=== PATIENT | female | born 1940 | race American Indian/Alaskan Native ===

== ENCOUNTER 2018-08-09 11:16 | Emergency (ER) | payer MEDICARE ==
[2018-08-09] MEDS ORDERED: Sodium Chloride 0.9% 1,000 ML IV STA (12:00)
--- NOTE | 2018-08-09 12:13 | ED PDOC ---
Arrival/HPI - General Historian: Patient, Family - History of Present Illness Narrative History of Present Illness (Text): 08/09/18 12:25 Pt is a 78yo female with a PMH of pancreatic cancer (diagnosed 10 years ago, s/p chemo radiation), cardiac stent (10 years ago), HTN, UTI, constipation who presents to the [facility] complaining of LLQ abdominal pain. Pt was recently admitted [place] [facility] [place] similar symptoms last month, she was treated for UTI and constipation. Denies blood in the stool, urinary symptoms, fever. Time/Duration: < week Symptom Course: Worsening Quality: Pressure Severity Level: 9 <Jose Martínez - Last Filed: 08/09/18 17:10> <Phi Turner DO - Last Filed: 08/09/18 19:56> - General Chief Complaint: Abdominal Pain Time Seen by Provider: 08/09/18 12:10 Past Medical History - Cardiac Hx Hypertension: Yes - Gastrointestinal Hx Gastrointestinal Disorders: Yes Other/Comment: Pancreatic CA - Psychiatric Hx Substance Use: No - Surgical History Hx Cardiac Catheterization: Yes (x 1 stent) - Anesthesia Hx Anesthesia: Yes Hx Anesthesia Reactions: No Hx Malignant Hyperthermia: No <Jose Martínez - Last Filed: 08/09/18 17:10> Family/Social History Family/Social History: Unknown Family HX Smoking Status: Never Smoked Hx Alcohol Use: No Hx Substance Use: No <Jose Martínez - Last Filed: 08/09/18 17:10> Allergies/Home Meds <Jose Martínez - Last Filed: 08/09/18 17:10> <Phi Turner DO - Last Filed: 08/09/18 19:56> Allergies/Adverse Reactions: Allergies No Known Allergies Allergy (Verified 08/09/18 11:43) Physical Exam Vital Signs Temp Pulse Resp BP Pulse Ox 08/09/18 11:16 98 F 68 20 160/70 H 100 Temperature: Afebrile Blood Pressure: Normal Pulse: Regular Respiratory Rate: Normal Mental Status: Positive for: Alert and Oriented X 3 - Systems Exam Head: Present: Atraumatic, Normocephalic Pupils: Present: PERRL Extroacular Muscles: Present: EOMI Mouth: Present: Moist Mucous Membranes Neck: Present: Normal Range of Motion Respiratory/Chest: Present: Clear to Auscultation, Good Air Exchange. No: Respiratory Distress, Accessory Muscle Use Cardiovascular: Present: Regular Rate and Rhythm, Normal S1, S2 Abdomen: Present: Tenderness (LLQ), Normal Bowel Sounds. No: Distention Upper Extremity: Present: Normal Inspection Lower Extremity: Present: Normal Inspection Neurological: Present: GCS=15, CN II-XII Intact, Speech Normal Skin: Present: Warm, Dry, Rashes Psychiatric: Present: Alert, Oriented x 3 <Jose Martínez - Last Filed: 08/09/18 17:10> Vital Signs Temp Pulse Resp BP Pulse Ox 08/09/18 16:13 64 18 175/87 H 100 08/09/18 15:59 64 18 204/79 H 99 08/09/18 15:03 79 227/89 H 08/09/18 14:30 71 18 227/88 H 99 08/09/18 13:48 98.2 F 66 18 221/86 H 100 08/09/18 11:16 98 F 68 20 160/70 H 100 <Phi Turner DO - Last Filed: 08/09/18 19:56> Medical Decision Making ED Course and Treatment: 08/09/18 12:38 amylase CMP Lipase Mg CBC Urine Cx toradol for pain control UA, urine culture CTAP with PO contrast pt to be sent home with pain medications pt advised to restart home antihypertensives tomorrow morning Pt seen, examined, assessment and plan discussed with Dr Johnny Martínez PGY1 08/09/18 16:28 - RAD Interpretation Radiology Orders: 08/09/18 12:00 ABD PELVIS PO & IV CONTRAST [CT] Stat - Medication Orders Current Medication Orders: Sodium Chloride (Sodium Chloride 0.9%) 1,000 mls @ 100 mls/hr IV .Q10H STA Stop: 08/09/18 21:59 Discontinued Medications Ketorolac Tromethamine (Toradol) 30 mg IVP STAT STA Stop: 08/09/18 12:01 Ondansetron HCl (Zofran Inj) 4 mg IVP STAT STA Stop: 08/09/18 12:01 <Jose Martínez - Last Filed: 08/09/18 17:10> ED Course and Treatment: Case discussed with patient's PMD, Dr. Ramirez. Patient to follow up with PMD in 2-3 days for blood pressure monitoring and management. - Lab Interpretations Lab Results: Total Bilirubin 0.9 mg/dL (0.2-1.3) 08/09/18 13:05 AST 34 U/L (14-36) 08/09/18 13:05 ALT 8 U/L (7-56) 08/09/18 13:05 Alkaline Phosphatase 43 U/L (38-126) 08/09/18 13:05 Total Protein 6.9 g/dL (5.8-8.3) 08/09/18 13:05 Albumin 3.7 g/dL (3.0-4.8) 08/09/18 13:05 Globulin 3.2 gm/dL 08/09/18 13:05 Albumin/Globulin Ratio 1.1 (1.1-1.8) 08/09/18 13:05 Amylase 50 U/L (35-125) 08/09/18 13:05 Lipase 50 U/L (23-300) 08/09/18 13:05 Urine Color Yellow (YELLOW) 08/09/18 14:40 Urine Appearance Clear (CLEAR) 08/09/18 14:40 Urine pH 6.0 (4.7-8.0) 08/09/18 14:40 Ur Specific [place] 1.020 (1.005-1.035) 08/09/18 14:40 Urine Protein 30 mg/dL (<30 mg/dL) H 08/09/18 14:40 Urine Glucose (UA) Negative mg/dL (NEGATIVE) 08/09/18 14:40 Urine Ketones 15 mg/dL (NEGATIVE) H 08/09/18 14:40 Urine Blood Negative (NEGATIVE) 08/09/18 14:40 Urine Nitrate Negative (NEGATIVE) 08/09/18 14:40 Urine Bilirubin Negative (NEGATIVE) 08/09/18 14:40 Urine Urobilinogen 0.2 E.U./dL (<1 E.U./dL) 08/09/18 14:40 Ur Leukocyte Esterase Trace Gasper/uL (NEGATIVE) H 08/09/18 14:40 Urine RBC 2 - 5 /hpf (0-2) H 08/09/18 14:40 Urine WBC 5 - 10 /hpf (0-6) H 08/09/18 14:40 Ur Epithelial Cells 6 - 8 /hpf (0-5) H 08/09/18 14:40 - RAD Interpretation Radiology Orders: 08/09/18 12:00 ABD PELVIS PO & IV CONTRAST [CT] Stat - Medication Orders Current Medication Orders: Discontinued Medications Clonidine HCl (Catapres) 0.2 mg PO STAT STA Stop: 08/09/18 14:42 Last Admin: 08/09/18 15:03 Dose: 0.2 mg MAR Pulse and Blood Pressure Document 08/09/18 15:03 EQ (Rec: 08/09/18 15:04 EQ [id number]) Pulse Pulse Rate (60-90) 79 Blood Pressure Blood Pressure (100/60-150/90) 227/89 Sodium Chloride (Sodium Chloride 0.9%) 1,000 mls @ 100 mls/hr IV .Q10H STA Stop: 08/09/18 21:59 Last Admin: 08/09/18 12:21 Dose: 100 mls/hr eMAR Start Stop Document 08/09/18 12:21 EQ (Rec: 08/09/18 12:21 EQ [id number]) Intravenous Solution Start Date 08/09/18 Start Time 12:21 Ketorolac Tromethamine (Toradol) 30 mg IVP STAT STA Stop: 08/09/18 12:01 Last Admin: 08/09/18 12:21 Dose: 30 mg MAR Pain Assessment Document 08/09/18 12:21 EQ (Rec: 08/09/18 12:21 EQ [id number]) Pain Reassessment Is this a pain reassessment? No Sleep Is patient sleeping during reassessment? No Presence of Pain Presence of Pain Yes IVP Administration Document 08/09/18 12:21 EQ (Rec: 08/09/18 12:21 EQ [id number]) Charges for Administration # of IVP Administrations 1 Morphine Sulfate (Morphine) 1 mg IVP STAT STA Stop: 08/09/18 13:38 Last Admin: 08/09/18 13:55 Dose: 1 mg MAR Pain Assessment Document 08/09/18 13:55 EQ (Rec: 08/09/18 13:55 EQ [id number]) Pain Reassessment Is this a pain reassessment? No Sleep Is patient sleeping during reassessment? No Presence of Pain Presence of Pain Yes IVP Administration Document 08/09/18 13:55 EQ (Rec: 08/09/18 13:55 EQ [id number]) Charges for Administration # of IVP Administrations 1 Ondansetron HCl (Zofran Inj) 4 mg IVP STAT STA Stop: 08/09/18 12:01 Last Admin: 08/09/18 12:21 Dose: 4 mg IVP Administration Document 08/09/18 12:21 EQ (Rec: 08/09/18 12:21 EQ [id number]) Charges for Administration # of IVP Administrations 1 <Phi Turner DO - Last Filed: 08/09/18 19:56> - PA / [facility] ATTENDANT / Resident Statement EBEN has reviewed & agrees with the documentation as recorded. EBEN has examined the patient and agrees with the treatment plan. <Phi Turner DO - Last Filed: 08/09/18 19:56> Disposition/Present on Arrival - Present on Arrival Any Indicators Present on Arrival: No History of DVT/PE: No History of Uncontrolled Diabetes: No Urinary Catheter: No History of Decub. Ulcer: No History Surgical Site Infection Following: None - Disposition Have Diagnosis and Disposition been Completed?: Yes Disposition Time: 17:10 <Jose Martínez - Last Filed: 08/09/18 17:10> - Disposition Disposition Time: 16:00 <Phi Turner DO - Last Filed: 08/09/18 19:56> - Disposition Diagnosis: Abdominal pain, Hypertension Disposition: HOME/ ROUTINE Condition: IMPROVED Discharge Instructions (ExitCare): High Blood Pressure in Adults, Acute Abdomen (Belly Pain), Adult (DC) Additional Instructions: VICTORINO MARTÍNEZ, thank you for letting us take care of you today. The emergency medical care you received today was directed at your acute symptoms. If you were prescribed any medication, please fill it and take as directed. It may take several days for your symptoms to resolve. Return to the Emergency Department if your symptoms worsen, do not improve, or if you have any other problems. Please contact your doctor or call one of the physicians/clinics you have been referred to that are listed on the Patient Visit Information form that is included in your discharge packet. Bring any paperwork you were given at discharge with you along with any medications you are taking to your follow up visit. Our treatment cannot replace ongoing medical care by a primary care pro vider outside of the emergency department. Thank you for allowing the [facility] team to be part of your care today. Follow up with your primary care doctor in 2-3 days for re-evaluation and further management. Prescriptions: Docusate [Colace] 100 mg PO Q8 PRN #20 cap PRN Reason: Constipation Ondansetron ODT [Zofran ODT] 4 mg PO Q8 PRN #20 odt PRN Reason: Nausea/Vomiting traMADol [Ultram] 50 mg PO Q8 PRN #15 tab PRN Reason: Pain, Severe (8-10) Referrals: Sanjuana Ramirez MD [Family Provider] - Follow up with primary Forms: [employer] ([place]ian)
[2018-08-09] MEDS ORDERED: Iohexol 240 (50 ml) ONE (12:16)
[2018-08-09 12:46] LABS: BASO # 0.02 K/mm3 (0.0-2.0); BASO % 0.3 % (0.0-3.0); HEMOGLOBIN 10.9 g/dL (12.0-16.0); LYMPH # 0.7 (1.2-3.4); LYMPH % 10.9 % (22.0-35.0); MEAN CELL VOLUME 85.6 fl (80.0-105.0); MEAN CORPUSCULAR HEMOGLOBIN 26.5 pg (25.0-35.0); MEAN PLATELET VOLUME 10.2 fl (7.0-11.0); MONO # 0.2 (0.1-0.6); MONO % 3.3 % (1.0-6.0); RBC 4.11 10^6/uL (3.5-6.1); RED CELL DISTRIBUTION WIDTH 13.5 % (11.5-14.5); WHITE BLOOD COUNT 6.1 10^3/uL (4.5-11.0)
[2018-08-09 13:27] LABS: ALB/GLOB RATIO 1.1 (1.1-1.8); ALBUMIN 3.7 g/dL (3.0-4.8); CALCIUM 9.3 mg/dL (8.4-10.5)
[2018-08-09] MEDS ORDERED: Morphine 2 mg/ml ISec IVP STA (13:37)
[2018-08-09] MEDS ORDERED: Iohexol 300 100 ML IJ ONE (13:52)
[2018-08-09 14:05] VITALS: RESP 18; TEMP 98.2
--- NOTE | 2018-08-09 15:01 | CT ---
Date of service: 08/09/2018 PROCEDURE: CT Abdomen and Pelvis with contrast HISTORY: LLQ tenderness COMPARISON: None. TECHNIQUE: Contrast dose: 100 cc of Omni 300 Radiation dose: Total exam DLP = 190.62 mGy-cm. This CT exam was performed using one or more of the following dose reduction techniques: Automated exposure control, adjustment of the mA and/or kV according to patient size, and/or use of iterative reconstruction technique. FINDINGS: LOWER THORAX: Unremarkable. LIVER: Unremarkable. No gross lesion or ductal dilatation. GALLBLADDER AND BILE DUCTS: Unremarkable. PANCREAS: There is a large cystic lesion in the tail of the pancreas measuring 25 by 60 mm. This is partially calcified. The findings most likely represent a pancreatic pseudocyst. However, a pancreatic neoplasm is also possibility. There are 2 adjacent necrotic lymph nodes seen between the left kidney and the pancreas. These measure 22 and 25 mm in length. SPLEEN: Unremarkable. ADRENALS: Unremarkable. No mass. KIDNEYS AND URETERS: Unremarkable. No hydronephrosis. No solid mass. VASCULATURE: Unremarkable. No aortic aneurysm. No aortic atherosclerotic calcification or mural plaque present. BOWEL: Unremarkable. No obstruction. No gross mural thickening. APPENDIX: Normal appendix. PERITONEUM: Unremarkable. No free fluid. No free air. LYMPH NODES: Unremarkable. No enlarged lymph nodes. BLADDER: Unremarkable. REPRODUCTIVE: Unremarkable. BONES: No acute fracture. OTHER FINDINGS: None. IMPRESSION: Large cystic lesion in the tail of the pancreas. The presence of calcifications suggest that this is a chronic pseudocyst. However necrotic lymph nodes are seen which raise the possibility of a pancreatic neoplasm.
[2018-08-09 15:17] LABS: URINE BILIRUBIN NEGATIVE (NEGATIVE); URINE BLOOD NEGATIVE (NEGATIVE); URINE GLUCOSE (UA) NEGATIVE (NEGATIVE); URINE LEUKOCYTE ESTERASE TRACE Leu/uL (NEGATIVE); URINE PROTEIN 30 mg/dL (<30 mg/dL); URINE UROBILINOGEN 0.2 E.U./dL (<1 E.U./dL)
[2018-08-09 15:19] LABS: URINE APPEARANCE CLEAR (CLEAR); URINE COLOR YELLOW (YELLOW)
[2018-08-09 15:59] VITALS: PULSE 64
[2018-08-09 16:14] VITALS: BP 175/87; O2SAT 100
--- NOTE | 2018-08-11 10:29 | CARD ---
APPROVED REPORT Date of service: 08/09/2018 EKG Measurement Heart [id number] <Conclusion> Normal sinus rhythm Normal ECG
== END 2018-08-09 16:48 | disposition home or self-care (01) ==
LOC: ED 11:16
DX: R10.32 Left lower quadrant pain (principal); I10 Essential (primary) hypertension; Z85.07 Personal history of malignant neoplasm of pancreas
CPT/HCPCS: 74177; 80053; 81001; 82150; 83690; 83735; 85025; 87086; 96374; 96375; 99284; J1885; J2270; J2405; J7030; Q9966; Q9967